=== PATIENT | male | born 1970 | race Caucasian/White ===

== ENCOUNTER 2021-08-04 15:06 | Emergency (ER) | payer OTHER ==
[~2021-08-04] VITALS: Ht 188 cm; Wt 88.5 kg
[2021-08-04] MEDS ORDERED: CEPH500 PO ×2 (16:29→17:26)
[2021-08-04] MEDS ORDERED: Norco 5-325 Ta1 EACH PO (17:26)
== END 2021-08-04 17:34 | disposition home or self-care (01) ==
LOC: ER 15:06
DX: S71.131A Puncture wound without foreign body, right thigh, initial encounter (principal); W19.XXXA Unspecified fall, initial encounter
CPT/HCPCS: 12002; 73552; 99283-25